=== PATIENT | male | born 1960 | race African-American/Black ===

== ENCOUNTER 2018-05-20 17:35 | Emergency (ER) | payer SELFPAY ==
[~2018-05-20] VITALS: Ht 188 cm; Wt 89.0 kg
[2018-05-20 23:51] LABS: *AMPHETAMINES SCREEN URINE PRESUMTIVE POSITIVE (NEGATIVE); *BARBITURATES SCREEN URINE NEGATIVE (NEGATIVE); *BENZODIAZEPINES SCREEN URINE NEGATIVE (NEGATIVE); *COCAINE SCREEN URINE NEGATIVE (NEGATIVE)
[2018-05-20 23:52] LABS: CANNABINOID URINE SCREEN NEGATIVE (NEGATIVE); METHADONE URINE SCREEN NEGATIVE (NEGATIVE); OPIATES URINE SCREEN NEGATIVE (NEGATIVE); PHENCYCLIDINE URINE SCREEN NEGATIVE (NEGATIVE)
[2018-05-21 01:25] VITALS: BP 171/71
[2018-05-21] MEDS ORDERED: ACETAMINOPHEN 325MG TABLET PO ONE (01:30)
== END 2018-05-21 01:47 | disposition home or self-care (01) ==
LOC: ER 17:35
DX: S20.211A Contusion of right front wall of thorax, initial encounter (principal); W06.XXXA Fall from bed, initial encounter; Y93.9 Activity, unspecified; Y92.9 Unspecified place or not applicable
CPT/HCPCS: 71045; 80305; 99285; Z7610

== ENCOUNTER 2018-05-21 03:14 | Emergency (ER) | payer SELFPAY ==
[~2018-05-21] VITALS: Ht 190.5 cm; Wt 86.0 kg
[2018-05-21 03:52] VITALS: BP 145/79
== END 2018-05-21 05:00 | disposition left against medical advice (07) ==
LOC: ER 03:14
DX: Z53.21 Procedure and treatment not carried out due to patient leaving prior to being seen by health care provider (principal)